=== PATIENT | female | born 1930 | race Caucasian/White ===

== ENCOUNTER → 2016-07-05 | Outpatient (CLI) | payer MEDICARE, OTHER ==
[~2016-07-05] MED LIST: ASPIRIN 81M81 MG/TA2 PO; CALCIUM 600MG+D1 TAB PO; DIOVAN HCT 25 M1 TA1 PO; ENABLEX15 MG PO; LANTUS100 U/ML SQ; NOVOLOG 100U100 U/M1 SQ; PRAVACHOL80 MG PO; TENORMIN 2525 MG/TAB PO; TIMOLOL MALEATE5 M1 OP; XALATAN EYE DROPS OD
== END ==
LOC: MC.RAD 11:30
DX: Z12.31 Encounter for screening mammogram for malignant neoplasm of breast (principal)

== ENCOUNTER → 2016-08-16 | Outpatient (REF) | LOC: ZLAB.WCH 18:04 | DX: Z01.89 Encounter for other specified special examinations (principal) ==

== ENCOUNTER → 2017-07-06 | Outpatient (CLI) | payer MEDICARE, OTHER | LOC: MC.RAD 08:40 | DX: Z12.31 Encounter for screening mammogram for malignant neoplasm of breast (principal) ==

== ENCOUNTER → 2017-12-06 | Outpatient (REF) ==
[2017-12-06 17:03] LABS: THYROID STIMULATING HORMONE 1.44 uIU/mL (0.465-4.680)
== END ==
LOC: ZLAB.WCH 16:03
PROVIDERS: Internal Medicine
DX: Z01.89 Encounter for other specified special examinations (principal)

== ENCOUNTER → 2019-04-18 | Outpatient (CLI) | payer MEDICARE, OTHER | LOC: COL.RAD 10:52 | DX: R31.0 Gross hematuria (principal) ==

== ENCOUNTER 2019-05-17 13:30 | Outpatient (RCR) | payer MEDICARE, OTHER | END 2019-07-15 | disposition home or self-care (01) | LOC: WSST | DX: R49.0 Dysphonia (principal) ==